=== PATIENT | male | born 1990 | race Caucasian/White ===

== ENCOUNTER 2019-10-07 22:32 | Emergency (ER) | payer SELFPAY ==
[~2019-10-07] VITALS: Ht 177.8 cm; Wt 68.0 kg
[2019-10-07 22:35] VITALS: BP 136/67
--- NOTE | 2019-10-07 22:40 | NUR ---
LEFT MIDDLE FINGER SKIN AVULSION FROM BITE THROUGH PETTING STRANGER'S DOG. NO BLEEDING. AAOX4. NO SOB. BREATHING EVENLY AND UNLABORED ON ROOM AIR.
[2019-10-07] MEDS ORDERED: TDAP [DIPH/PERTUSSIS/TET] 0.5 ML VIAL IM ONE ×2 (22:55→23:00)
--- NOTE | 2019-10-07 23:00 | NUR ---
TECH AT BEDSIDE FOR CLEANING
--- NOTE | 2019-10-07 23:12 | NUR ---
Patient discharged to home in stable condition. Written and verbal after care instructions given. Patient verbalizes understanding of instruction.
== END 2019-10-07 23:13 | disposition home or self-care (01) ==
LOC: ER 22:32
DX: S61.253A Open bite of left middle finger without damage to nail, initial encounter (principal); Z88.1 Allergy status to other antibiotic agents; W54.0XXA Bitten by dog, initial encounter; Y93.89 Activity, other specified; Y92.89 Other specified places as the place of occurrence of the external cause; Y99.8 Other external cause status
CPT/HCPCS: 90715

== ENCOUNTER 2019-11-19 15:12 | Emergency (ER) | payer SELFPAY ==
[~2019-11-19] VITALS: Ht 177.8 cm; Wt 68.0 kg
[2019-11-19 15:23] VITALS: BP 110/70
--- NOTE | 2019-11-19 16:10 | NUR ---
Patient discharged to home in stable condition. Written and verbal after care instructions given. Patient verbalizes understanding of instruction.
== END 2019-11-19 16:11 | disposition home or self-care (01) ==
LOC: ER 15:16
DX: M79.602 Pain in left arm (principal); Z88.1 Allergy status to other antibiotic agents